=== PATIENT | male | born 1995 | race Caucasian/White ===

== ENCOUNTER 2018-11-18 20:26 | Emergency (ER) | payer BC ==
[~2018-11-18] VITALS: Ht 177.8 cm; Wt 93.0 kg
[~2018-11-18 20:26] MED LIST: CLON0.1T14 PO; HYDR-3895 PO; IBUP-1955 PO; QUET25TA PO
--- NOTE | 2018-11-18 21:00 | NUR ---
Patient ambulated with stable gait. A/Ox4. Speech clear, speaks in complete sentences. No neuro deficits noted. Patient came for med cl to admission at [facility]. Per patient he reports having SI but no plan. Respiratory even and unlabored, no cough no sob. Denies n/v/d. Patient in bed stripped and put in a gown. Mother at bedside accompanying patient. SI precautions implemented. Addendum: 11/18/18 at 2207 by BROOKLYNN Patient denies HI, AH or VH at this time.
--- NOTE | 2018-11-18 21:21 | NUR ---
ERMD at bedside for MSE
[2018-11-18 21:35] LABS: BASOPHILS # (AUTO) 0.1 K/uL (0.0-8.0); BASOPHILS % (AUTO) 0.8 % (0.0-2.0); EOSINOPHILS # (AUTO) 0.2 K/uL (0.0-0.7); HEMOGLOBIN 15.3 g/dL (12.5-16.3); LYMPHOCYTES # (AUTO) 2.5 K/uL (20.0-40.0); LYMPHOCYTES % (AUTO) 39.6 % (20.5-51.5); MEAN CORPUSCULAR HEMOGLOBIN 30.7 uug (23.8-33.4); MEAN CORPUSCULAR HGB CONC 35 g/dL (32.5-36.3); MEAN CORPUSCULAR VOLUME 88.5 fL (73.0-96.2); MONOCYTES # (AUTO) 0.6 K/uL (2.0-10.0); MONOCYTES % (AUTO) 9.3 % (0.0-11.0); NEUTROPHILS % (AUTO) 47.3 % (38.5-71.5); PLATELET COUNT (AUTO) 214 K/uL (152-348); RED BLOOD CELL COUNT(AUTO) 4.97 MIL/uL (4.06-5.63); WHITE BLOOD COUNT (AUTO) 6.4 K/uL (3.6-10.2)
[2018-11-18 21:41] LABS: *BILIRUBIN,URIN NEGATIVE (NEGATIVE); *BLOOD, URINE 1+ (NEGATIVE); *CLARITY,URINE CLEAR (CLEAR); *COLOR,URINE YELLOW (YELLOW); *KETONES,URINE NEGATIVE (NEGATIVE); *UROBILINOGEN,URINE 0.2 E.U./dl (NORMAL); LEUKOCYTE ESTERASE ,URINE 2+ (NEGATIVE); NITRITE, URINE NEGATIVE (NEGATIVE); UGLUCOSE NEGATIVE (NEGATIVE)
[2018-11-18 21:42] LABS: CARBON DIOXIDE 28 mmol/L (21-32); CHLORIDE 106 mmol/L (98-107); CREATININE 1.2 mg/dL (0.6-1.3); GLUCOSE 89 mg/dL (74-106); POTASSIUM 3.8 mmol/L (3.5-5.1); UREA NITROGEN, BLOOD 13 mg/dL (7-18)
[2018-11-18 21:48] LABS: ALANINE AMINOTRANSFERASE 39 U/L (16-63); ALKALINE PHOSPHATASE 51 U/L (50-136); ASPARTATE AMINOTRANSFERASE 39 U/L (15-37); BILIRUBIN,DIRECT 0.2 mg/dL (0.0-0.2); BILIRUBIN,TOTAL 1.4 mg/dL (0.2-1.0); TOTAL PROTEIN, SERUM 7.4 g/dL (6.4-8.2)
[2018-11-18 21:50] LABS: RBC,URINE 0-3 /HPF (0-3)
[2018-11-18 21:51] LABS: ETHANOL < 3 MG/DL (0-0)
[2018-11-18 21:53] LABS: ACETAMINOPHEN < 2.0 ug/mL (10-30)
[2018-11-18 21:55] LABS: *AMPHETAMINE, URINE POSITIVE (NEGATIVE); *BARBITURATE, URINE NEGATIVE (NEGATIVE); *CANNABINOID, URINE NEGATIVE (NEGATIVE); *COCCAINE, URINE NEGATIVE (NEGATIVE); *OPIATE, URINE NEGATIVE (NEGATIVE); *PHENCYCLIDINE SCREEN,URINE NEGATIVE (NEGATIVE)
--- NOTE | 2018-11-18 22:01 | NUR ---
Tamy encarnacion in [facility] - 11/18/18 at 2202 by BROOKLYNN ETA 20 MIN
--- NOTE | 2018-11-18 22:02 | NUR ---
Duglas Armstrong LCSW was contacted ETA 20 min.
--- NOTE | 2018-11-18 22:40 | NUR ---
Per Duglas Armstrong, patient does not meet criteria and will be d/c. Patient is cleared and will be able to go to the [place] [facility] tomorrow for admission.
[2018-11-18 23:07] VITALS: BP 131/82
--- NOTE | 2018-11-18 23:07 | NUR ---
Patient discharged to home in stable conditon. Written and verbal after care instructions given. Patient verbalizes understanding of instructions. Patient ambulated with stable gait. Denies any SI/HI/AH/VH. Patient is medically cleared for admission to [facility].
== END 2018-11-18 23:08 | disposition home or self-care (01) ==
LOC: ER 20:26
DX: F19.90 Other psychoactive substance use, unspecified, uncomplicated (principal); G43.909 Migraine, unspecified, not intractable, without status migrainosus; F41.9 Anxiety disorder, unspecified; F17.200 Nicotine dependence, unspecified, uncomplicated; Z79.1 Long term (current) use of non-steroidal anti-inflammatories (NSAID); Z79.899 Other long term (current) drug therapy
CPT/HCPCS: 36415; 80048; 80076; 80307; 81000; 81001; 85025; 87086; 99283; G0480 ×2; G0481; A4663

== ENCOUNTER 2021-05-04 11:19 | Emergency (ER) | payer BC, MEDICAID ==
[~2021-05-04] VITALS: Ht 180.3 cm; Wt 99.8 kg
--- NOTE | 2021-05-04 11:54 | NUR ---
[email or web address], medical screening exam in progress
[2021-05-04] MEDS ORDERED: CETI-90 PO (12:05)
--- NOTE | 2021-05-04 12:09 | NUR ---
PT WAS D/C'd TO HOME. D/C INSTRUCTIONS GIVEN TO THE PT BY DR EVANGELISTA.
[2021-05-04 12:10] VITALS: BP 132/75
== END 2021-05-04 12:11 | disposition home or self-care (01) ==
LOC: ER 11:19
DX: J30.1 Allergic rhinitis due to pollen (principal); R03.0 Elevated blood-pressure reading, without diagnosis of hypertension; F17.200 Nicotine dependence, unspecified, uncomplicated
CPT/HCPCS: A4663